=== PATIENT | male | born 1955 | race Caucasian/White ===

== ENCOUNTER → 2016-12-06 | Outpatient (REF) | payer OTHER ==
[2016-12-08 00:06] LABS: BETA 2 MICROGLOBULIN 1.3 mg/L (0.6-2.4)
[2016-12-08 15:11] LABS: FACTOR VIII ACTIVITY 99 % (57-163)
== END ==
LOC: M LAB REF 12:19
PROVIDERS: ATTEND Internal Medicine Medical Oncology
DX: Z79.01 Long term (current) use of anticoagulants (principal)